=== PATIENT | male | born 1985 | race Two or more races ===

== ENCOUNTER 2020-01-10 19:40 | Inpatient (IN) | payer OTHER ==
[~2020-01-10] VITALS: Ht 170.2 cm; Wt 72.6 kg
[2020-01-10] MEDS ORDERED: IV NORMAL SALINE 500 ML IV ONE (19:44)
--- NOTE | 2020-01-10 19:45 | NUR ---
Dr. Kamara at bedside for MSE.
[2020-01-10] MEDS ORDERED: LEVO75TA7 PO (20:07)
[2020-01-10] MEDS ORDERED: OLAN5TAB3 PO (20:07)
[2020-01-10] MEDS ORDERED: DOCU-141 PO (20:07)
[2020-01-10] MEDS ORDERED: ZONI100C31 PO (20:07)
[2020-01-10] MEDS ORDERED: QUET150T2 PO (20:07)
[2020-01-10] MEDS ORDERED: LEVE500T19 PO (20:07)
[2020-01-10] MEDS ORDERED: TRAZ-182 PO (20:07)
[2020-01-10] MEDS ORDERED: SENN8.6T19 PO (20:07)
[2020-01-10 20:39] LABS: ABG BASE EXCESS -4.2 mmol/L; ABG HCO3 19.1 mmol/L; ABG PCO2 30.3 mmHg (35.0-45.0); ABG PH 7.417 (7.350-7.450); ABG PO2 91.6 mmHg (75.0-100.0); ABG SITE LEFT BRACHIAL; ABG TOTAL HEMOGLOBIN 14.2 G/dL (13.5-18.0); COHb 1.2 % (0.5-1.5); MetHb 0.2 % (0.0-1.5); VENT MODE Nasal Cannula
--- NOTE | 2020-01-10 20:55 | NUR ---
Xray at bedside.
[2020-01-10] MEDS ORDERED: AZITHROMYCIN IV 500 MG in IV DEXTROSE 5% 250 ML IV ONE (21:15)
[2020-01-10] MEDS ORDERED: CEFTRIAXONE 1 G in IV DEXTROSE 5% 50 ML IV ONE (21:15)
--- NOTE | 2020-01-10 21:20 | NUR ---
Unable to draw blood from IV, patient is a hard stick, made aware for central line insertion.
[2020-01-10] MEDS ORDERED: CEFTRIAXONE 1 G VIAL ONE (21:54)
[2020-01-10] MEDS ORDERED: AZITHROMYCIN 500MG/ D5W 250ML IVPB **ER PYXIS ONLY IV ONE (21:55)
--- NOTE | 2020-01-11 00:45 | NUR ---
Triple lumen central line catheter placed by Dr. Kamara. Patient tolerated procedure well.
[2020-01-11 01:22] LABS: BASOPHILS % (AUTO) 0.4 % (0.0-2.0); EOSINOPHILS # (AUTO) 0.1 K/uL (0.0-0.7); EOSINOPHILS % (AUTO) 1.1 % (0.0-7.0); HEMATOCRIT 40.9 % (36.7-47.1); HEMOGLOBIN 14.2 g/dL (12.5-16.3); LYMPHOCYTES # (AUTO) 1.4 K/uL (20.0-40.0); LYMPHOCYTES % (AUTO) 26.6 % (20.5-51.5); MEAN CORPUSCULAR HEMOGLOBIN 29.6 uug (23.8-33.4); MEAN CORPUSCULAR HGB CONC 35 g/dL (32.5-36.3); MEAN CORPUSCULAR VOLUME 85.4 fL (73.0-96.2); MONOCYTES # (AUTO) 0.5 K/uL (2.0-10.0); MONOCYTES % (AUTO) 10.6 % (0.0-11.0); NEUTROPHILS # (AUTO) 3.1 K/uL (1.8-8.9); NEUTROPHILS % (AUTO) 61.3 % (38.5-71.5); PLATELET COUNT (AUTO) 280 K/uL (152-348); RED BLOOD CELL COUNT(AUTO) 4.79 MIL/uL (4.06-5.63); WHITE BLOOD COUNT (AUTO) 5.1 K/uL (3.6-10.2)
[2020-01-11 01:29] LABS: CREATININE 0.9 mg/dL (0.6-1.3); POTASSIUM 3.1 mmol/L (3.5-5.1)
--- NOTE | 2020-01-11 01:44 | NUR ---
Dr. Kamara on panel call with Bebo Goldsmith DNP.
--- NOTE | 2020-01-11 01:45 | NUR ---
Patient accepted for admission to [facility] by Bebo Goldsmith DNP. Diagnosis: Pneumonia, Covid 19+.
[2020-01-11 01:46] LABS: BILIRUBIN,TOTAL 0.4 mg/dL (0.2-1.0); TOTAL PROTEIN, SERUM 7.8 g/dL (6.4-8.2)
[2020-01-11] MEDS ORDERED: ONDANSETRON 4 MG/2 ML VIAL IV PRN (02:00)
[2020-01-11] MEDS ORDERED: Z GUARD REMEDY PASTE 57 GM TUBE TOP PRN (02:00)
[2020-01-11] MEDS ORDERED: ACETAMINOPHEN 650 MG SUPP.RECT RC PRN (02:00)
--- NOTE | 2020-01-11 02:38 | NUR ---
Report given to Brandon LÓPEZ Tele.
[2020-01-11] MEDS ORDERED: POTASSIUM CHLORIDE 100 ML ONE (02:55)
[2020-01-11] MEDS: POTASSIUM CHLORIDE 50 ML IV SCH ×2 (03:25→04:46)
[2020-01-11] MEDS ORDERED: PIPERACILLIN SODIUM/TAZO 3.375 GM VIAL ONE (03:48)
[2020-01-11 04:31] VITALS: BP 103/70
[2020-01-11] MEDS ORDERED: PIPERACILLIN SODIUM/TAZOBACTAM 3.375 G in IV DEXTROSE 5% 50 ML IV SCH (06:00)
[2020-01-11] MEDS ORDERED: PIPERACILLIN/TAZOBACTAM/D5W 3.375 G in PREMIXED 1 EACH IV SCH (06:00)
[2020-01-11] MEDS: LEVOTHYROXINE SODIUM 75 MCG TABLET PO SCH (06:18)
[2020-01-11] MEDS ORDERED: LEVE500T20 PO (06:51)
--- NOTE | 2020-01-11 07:00 | NUR ---
Admitted to room 516; seizure precaution observed; passed bedside swallow test; admission procedures done;; initially placed condom cath for urine collection but failed; antibiotics started; needs attended; continue to monitor; pt took meds crushed with applesauce and given with aspiration precaution; WCRN and dietary consult ordered; low air loss mattress orders; will endorse Addendum: 01/12/20 at 0431 by GREGORIA PAUL RN room 216
--- NOTE | 2020-01-11 08:00 | NUR ---
received pt. resting in bed alert oriented to self. seizure precautions in place. IV in L wrist and R femoral central line triple lumen in place. all lumens flush well. pt. on 2 L saturating well. pt. on pvc monitor. pt. able to swallow pills crushed with apple sauce. safety measures in place. call light within reach.
[2020-01-11 08:05] LABS: BASOPHILS % (AUTO) 0.2 % (0.0-2.0); EOSINOPHILS % (AUTO) 0.8 % (0.0-7.0); HEMATOCRIT 37.8 % (36.7-47.1); HEMOGLOBIN 13.1 g/dL (12.5-16.3); LYMPHOCYTES # (AUTO) 1.2 K/uL (20.0-40.0); LYMPHOCYTES % (AUTO) 27.6 % (20.5-51.5); MEAN CORPUSCULAR HEMOGLOBIN 29.6 uug (23.8-33.4); MEAN CORPUSCULAR HGB CONC 35 g/dL (32.5-36.3); MEAN CORPUSCULAR VOLUME 85.5 fL (73.0-96.2); MONOCYTES # (AUTO) 0.5 K/uL (2.0-10.0); MONOCYTES % (AUTO) 11.9 % (0.0-11.0); NEUTROPHILS # (AUTO) 2.7 K/uL (1.8-8.9); NEUTROPHILS % (AUTO) 59.5 % (38.5-71.5); PLATELET COUNT (AUTO) 261 K/uL (152-348); RED BLOOD CELL COUNT(AUTO) 4.42 MIL/uL (4.06-5.63); WHITE BLOOD COUNT (AUTO) 4.5 K/uL (3.6-10.2)
[2020-01-11 08:58] LABS: ALANINE AMINOTRANSFERASE 58 U/L (16-63); ALKALINE PHOSPHATASE 102 U/L (50-136); ASPARTATE AMINOTRANSFERASE 45 U/L (15-37); BILIRUBIN,TOTAL 0.3 mg/dL (0.2-1.0); CARBON DIOXIDE 17 mmol/L (21-32); CHLORIDE 106 mmol/L (98-107); CHOLESTEROL 177 mg/dL (<200); CREATININE 0.6 mg/dL (0.6-1.3); GLUCOSE 102 mg/dL (74-106); HDL CHOLESTEROL 29 mg/dL (40-60); MAGNESIUM 2.1 mg/dL (1.8-2.4); PHOSPHOROUS 3.6 mg/dL (2.5-4.9); POTASSIUM 3.6 mmol/L (3.5-5.1); TOTAL PROTEIN, SERUM 7.3 g/dL (6.4-8.2); TRIGLYCERIDES 178 MG/DL (30-150); UREA NITROGEN, BLOOD 8 mg/dL (7-18)
[2020-01-11] MEDS ORDERED: LEVETIRACETAM 500 MG PO SCH (09:00)
[2020-01-11] MEDS: ENOXAPARIN SODIUM 40 MG/0.4 ML DISP.SYRIN SQ SCH (09:00)
[2020-01-11] MEDS: PANTOPRAZOLE SODIUM 40 MG VIAL IV SCH (11:24)
[2020-01-11] MEDS: HYDROXYCHLOROQUINE SULFATE 200 MG TABLET PO SCH ×2 (11:24→20:50)
[2020-01-11] MEDS: levETIRAcetam 500 MG TABLET PO SCH ×2 (11:24→20:59)
[2020-01-11 11:30] VITALS: BP 105/71
[2020-01-11] MEDS: PIPERACILLIN/TAZOBACTAM/D5W 3.375 G in IV DEXTROSE 5% 50 ML IV SCH ×2 (13:04→21:15)
[2020-01-11 16:00] VITALS: BP 105/73
--- NOTE | 2020-01-11 18:48 | NUR ---
spoke to primer charger and Dr. Castro for pt.'s diet as there is no order in. Waiting to hear from [facility] what diet is there. pt. picked his L nostril and had a nose bleed. Cleaned pt.'s nose. safety measures in place. will endorse to pm nurse
[2020-01-11 20:00] VITALS: BP 97/65
[2020-01-11] MEDS: SENNOSIDES 1 TABLET PO SCH (20:51)
[2020-01-11] MEDS: ZONISAMIDE 100 MG CAPSULE PO SCH (20:59)
[2020-01-11] MEDS: ATORVASTATIN 10 MG TABLET PO SCH (21:00)
[2020-01-11] MEDS ORDERED: DOCUSATE SODIUM 100 MG CAPSULE PO SCH (21:00)
--- NOTE | 2020-01-11 21:00 | NUR ---
Pt's dressing to groin CL changed aseptically; per Jeannine Assisted, pt is on pureed diet and Dr Holder ordered this. diet.
[2020-01-11] MEDS: DOCUSATE SODIUM 100 MG/10 ML LIQUID UDC PO SCH (21:15)
[2020-01-12] VITALS: BP 100/67
[2020-01-12 05:39] LABS: *BILIRUBIN,URIN NEGATIVE (NEGATIVE); *BLOOD, URINE NEGATIVE (NEGATIVE); *CLARITY,URINE CLEAR (CLEAR); *COLOR,URINE YELLOW (YELLOW); *KETONES,URINE NEGATIVE (NEGATIVE); LEUKOCYTE ESTERASE ,URINE NEGATIVE (NEGATIVE); NITRITE, URINE NEGATIVE (NEGATIVE); PH,URINE 7.5 (5.0-8.0); UGLUCOSE NEGATIVE (NEGATIVE)
[2020-01-12] MEDS: PIPERACILLIN/TAZOBACTAM/D5W 3.375 G in IV DEXTROSE 5% 50 ML IV SCH ×3 (05:43→21:20)
--- NOTE | 2020-01-12 06:00 | NUR ---
Pt rested well in between care; seizure and aspiration precaution maintained; urine collected by clean catch and sent to lab; ongoing antibiotics; incontinence care done; continue to monitor; continue plan of care.
[2020-01-12 06:29] LABS: BACTERIA,URINE NONE SEEN /HPF (NONE SEEN); MUCUS,URINE FEW /LPF (0-FEW); RBC,URINE 0-3 /HPF (0-3); SQUAMOUS EPITHELIAL CELL,UR FEW /HPF (NONE SEEN); WBC,URINE 0-3 /HPF (0-3)
[2020-01-12] MEDS: LEVOTHYROXINE SODIUM 75 MCG TABLET PO SCH (06:36)
[2020-01-12 07:21] LABS: BASOPHILS % (AUTO) 0.4 % (0.0-2.0); EOSINOPHILS # (AUTO) 0.1 K/uL (0.0-0.7); EOSINOPHILS % (AUTO) 1.6 % (0.0-7.0); HEMOGLOBIN 13.7 g/dL (12.5-16.3); LYMPHOCYTES # (AUTO) 1.1 K/uL (20.0-40.0); LYMPHOCYTES % (AUTO) 26.3 % (20.5-51.5); MEAN CORPUSCULAR HEMOGLOBIN 29.2 uug (23.8-33.4); MEAN CORPUSCULAR HGB CONC 34 g/dL (32.5-36.3); MEAN CORPUSCULAR VOLUME 85.3 fL (73.0-96.2); MONOCYTES # (AUTO) 0.6 K/uL (2.0-10.0); NEUTROPHILS # (AUTO) 2.3 K/uL (1.8-8.9); NEUTROPHILS % (AUTO) 56.7 % (38.5-71.5); RED BLOOD CELL COUNT(AUTO) 4.69 MIL/uL (4.06-5.63); WHITE BLOOD COUNT (AUTO) 4.1 K/uL (3.6-10.2)
[2020-01-12 07:34] LABS: CREATININE 0.9 mg/dL (0.6-1.3); MAGNESIUM 2.2 mg/dL (1.8-2.4); POTASSIUM 3.5 mmol/L (3.5-5.1)
[2020-01-12 07:42] LABS: PLATELET COUNT (AUTO) 341 K/uL (152-348)
--- NOTE | 2020-01-12 08:00 | NUR ---
Received pt in bed awake, watching tv, but non-verbal. Doesn't answer questions nor obey commands. Removed O2 cannula, attempted to replace but pt refused and tried to punch the nurse. Stayed on RA saturating 92%. Dr. Cleary made aware. Triple lumen Central line on right groin running TKO, flushed and all lumens are patent. Seizure, fall and aspiration precautions in place. Pt repositioned. Bed locked in lowest position with siderails 3x up. Call light within reach. Will monitor.
[2020-01-12] MEDS: levETIRAcetam 500 MG TABLET PO SCH ×2 (08:51→20:34)
[2020-01-12] MEDS: HYDROXYCHLOROQUINE SULFATE 200 MG TABLET PO SCH ×2 (08:51→20:34)
[2020-01-12] MEDS: PANTOPRAZOLE SODIUM 40 MG VIAL IV SCH (08:51)
[2020-01-12] MEDS: ENOXAPARIN SODIUM 40 MG/0.4 ML DISP.SYRIN SQ SCH (08:52)
[2020-01-12 09:30] VITALS: BP 99/57
[2020-01-12 10:09] LABS: EOSINOPHILS % (MANUAL) 2 % (0-8); LYMPHOCYTES % (MANUAL) 30 % (20-40); MONOCYTES % (MANUAL) 11 % (2-10); MYELOCYTES % 2 % (0-0); NEUTROPHILS % (MANUAL) 55 % (42-75)
--- NOTE | 2020-01-12 12:42 | NUR ---
WOUND CARE CONSULT: REVIEWED CHART, NURSING DOCUMENTATION AND PHOTOS. SPOKE WITH NURSING STAFF. DISCUSSED SKIN PROTECTION. WILL SEE PRN. CURRENT DELLA SCORE IS 13. MD IN AGREEMENT WITH PLAN OF CARE.
[2020-01-12 18:39] VITALS: BP 102/65
[2020-01-12] MEDS: DOCUSATE SODIUM 100 MG/10 ML LIQUID UDC PO SCH (20:33)
[2020-01-12] MEDS: ZONISAMIDE 100 MG CAPSULE PO SCH (20:34)
[2020-01-12] MEDS: ATORVASTATIN 10 MG TABLET PO SCH (20:34)
[2020-01-12] MEDS: SENNOSIDES 1 TABLET PO SCH (20:34)
--- NOTE | 2020-01-12 21:49 | NUR ---
awake and alert, patient nonverbal. Bedrest maintained.Right femoral triple lumen CVP intact, flushed and patent. IV ABT given at scheduled times. Tolerated well. No ill effects noted. VSS. 93%RA. Compliant with meds, took meds with apple sauce. On teletypesetter monitor, patient on SR with bundle branch block. Seizures precautions maintained. Incontinent of bowel and bladder. No BM noted this shift. Will monitor patient. Respiratory isolation maintained. Fall precautions maintained. Siderails up for safety.
[2020-01-13] MEDS: PIPERACILLIN/TAZOBACTAM/D5W 3.375 G in IV DEXTROSE 5% 50 ML IV SCH ×3 (05:40→22:50)
[2020-01-13] MEDS: LEVOTHYROXINE SODIUM 75 MCG TABLET PO SCH (06:12)
--- NOTE | 2020-01-13 06:31 | NUR ---
End of shift notes: Quiet night. No distress noted. VSS. Attended to needs. Incontinent of urine x2. Kept clean and dry. . On telemetry, patient SR HR 75. Will monitor patient.
[2020-01-13 08:12] VITALS: BP 101/61
[2020-01-13] MEDS: levETIRAcetam 500 MG TABLET PO SCH ×2 (09:16→20:36)
[2020-01-13] MEDS: HYDROXYCHLOROQUINE SULFATE 200 MG TABLET PO SCH ×2 (09:16→20:36)
[2020-01-13] MEDS: PANTOPRAZOLE SODIUM 40 MG TABLET.DR PO SCH (09:18)
[2020-01-13] MEDS: ENOXAPARIN SODIUM 40 MG/0.4 ML DISP.SYRIN SQ SCH (09:20)
[2020-01-13 09:32] LABS: BASOPHILS % (AUTO) 0.4 % (0.0-2.0); EOSINOPHILS # (AUTO) 0.1 K/uL (0.0-0.7); EOSINOPHILS % (AUTO) 2.5 % (0.0-7.0); HEMOGLOBIN 14.9 g/dL (12.5-16.3); LYMPHOCYTES # (AUTO) 1.5 K/uL (20.0-40.0); LYMPHOCYTES % (AUTO) 36.6 % (20.5-51.5); MEAN CORPUSCULAR HEMOGLOBIN 29.2 uug (23.8-33.4); MEAN CORPUSCULAR HGB CONC 34 g/dL (32.5-36.3); MEAN CORPUSCULAR VOLUME 86.2 fL (73.0-96.2); MONOCYTES # (AUTO) 0.4 K/uL (2.0-10.0); MONOCYTES % (AUTO) 10.1 % (0.0-11.0); NEUTROPHILS # (AUTO) 2.1 K/uL (1.8-8.9); NEUTROPHILS % (AUTO) 50.4 % (38.5-71.5); PLATELET COUNT (AUTO) 423 K/uL (152-348); WHITE BLOOD COUNT (AUTO) 4.2 K/uL (3.6-10.2)
[2020-01-13 10:13] LABS: MAGNESIUM 2.4 mg/dL (1.8-2.4); PHOSPHOROUS 3.1 mg/dL (2.5-4.9); POTASSIUM 3.4 mmol/L (3.5-5.1)
[2020-01-13 20:00] VITALS: BP 125/75
[2020-01-13] MEDS: SENNOSIDES 1 TABLET PO SCH (20:36)
[2020-01-13] MEDS: ATORVASTATIN 10 MG TABLET PO SCH (20:36)
[2020-01-13] MEDS: DOCUSATE SODIUM 100 MG/10 ML LIQUID UDC PO SCH (20:36)
[2020-01-13] MEDS: ZONISAMIDE 100 MG CAPSULE PO SCH (20:37)
[2020-01-13] MEDS ORDERED: DOCUSATE SODIUM 100 MG CAPSULE PO SCH (21:00)
[2020-01-14] VITALS: BP 107/54
[2020-01-14 04:00] VITALS: BP 105/68
[2020-01-14] MEDS: PIPERACILLIN/TAZOBACTAM/D5W 3.375 G in IV DEXTROSE 5% 50 ML IV SCH ×3 (06:17→21:10)
[2020-01-14] MEDS: LEVOTHYROXINE SODIUM 75 MCG TABLET PO SCH (06:18)
--- NOTE | 2020-01-14 06:47 | NUR ---
Patient slept intermittently. No SOB noted. Central line on RFV triple lumen intact and patent. IV ATB tolerated well. On seizure prec. Turned and repositioned. Will endorse accordingly
[2020-01-14 07:23] LABS: CREATININE 1.1 mg/dL (0.6-1.3); MAGNESIUM 2.3 mg/dL (1.8-2.4); PHOSPHOROUS 4.2 mg/dL (2.5-4.9); POTASSIUM 3.7 mmol/L (3.5-5.1)
--- NOTE | 2020-01-14 07:40 | NUR ---
Received patient in bed, awake. No signs of distress noted. On Room Air saturating 93%. No SOB. No complain of Pain or discomfort. On contact and droplet isolation for Positive covid 19. Proper PPE strictly Observed. Kept clean and comfortable. Will continue to monitor.
[2020-01-14 08:00] VITALS: BP 107/72
[2020-01-14 08:04] LABS: BASOPHILS % (AUTO) 0.3 % (0.0-2.0); EOSINOPHILS # (AUTO) 0.2 K/uL (0.0-0.7); EOSINOPHILS % (AUTO) 2.8 % (0.0-7.0); HEMATOCRIT 43.6 % (36.7-47.1); HEMOGLOBIN 15.1 g/dL (12.5-16.3); LYMPHOCYTES # (AUTO) 1.8 K/uL (20.0-40.0); MEAN CORPUSCULAR HEMOGLOBIN 29.9 uug (23.8-33.4); MEAN CORPUSCULAR HGB CONC 35 g/dL (32.5-36.3); MEAN CORPUSCULAR VOLUME 86.3 fL (73.0-96.2); MONOCYTES # (AUTO) 0.7 K/uL (2.0-10.0); MONOCYTES % (AUTO) 12.7 % (0.0-11.0); NEUTROPHILS # (AUTO) 3.1 K/uL (1.8-8.9); NEUTROPHILS % (AUTO) 53.2 % (38.5-71.5); PLATELET COUNT (AUTO) 502 K/uL (152-348); RED BLOOD CELL COUNT(AUTO) 5.05 MIL/uL (4.06-5.63)
[2020-01-14 08:14] LABS: WHITE BLOOD COUNT (AUTO) 5.8 K/uL (3.6-10.2)
[2020-01-14] MEDS: PANTOPRAZOLE SODIUM 40 MG TABLET.DR PO SCH (09:02)
[2020-01-14] MEDS: levETIRAcetam 500 MG TABLET PO SCH ×2 (09:02→20:45)
[2020-01-14] MEDS: HYDROXYCHLOROQUINE SULFATE 200 MG TABLET PO SCH ×2 (09:10→20:44)
[2020-01-14] MEDS: ENOXAPARIN SODIUM 40 MG/0.4 ML DISP.SYRIN SQ SCH (09:38)
[2020-01-14 11:30] VITALS: BP 104/68
[2020-01-14 15:30] VITALS: BP 99/66
--- NOTE | 2020-01-14 18:29 | NUR ---
Patient in bed, awake. No signs of distress noted. On Room Air saturating 94%. No SOB noted. Afebrile. No signs of Pain or discomfort. All needs attended and met. Kept clean and comfortable. Will endorse to Oncoming Nurse.
[2020-01-14 20:00] VITALS: BP 109/69
--- NOTE | 2020-01-14 20:00 | NUR ---
Patient received into care, sitting up in bed, watching television. Patient is alert/oriented x1 and is nonverbal. Patient has no s/s of acute distress or discomfort noted/observed by this nurse. All safety, seizure, fall, and isolation precaution measures are in place. Call light and personal items are within reach at all times. Will continue to monitor and assess.
[2020-01-14] MEDS: DOCUSATE SODIUM 100 MG/10 ML LIQUID UDC PO SCH (20:44)
[2020-01-14] MEDS: ZONISAMIDE 100 MG CAPSULE PO SCH (20:44)
[2020-01-14] MEDS: ATORVASTATIN 10 MG TABLET PO SCH (20:44)
[2020-01-14] MEDS: SENNOSIDES 1 TABLET PO SCH (20:45)
[2020-01-15] VITALS (7 sets, daily range): BP systolic 101–112; BP diastolic 60–74
[2020-01-15] MEDS: PIPERACILLIN/TAZOBACTAM/D5W 3.375 G in IV DEXTROSE 5% 50 ML IV SCH ×3 (05:04→22:00)
[2020-01-15] MEDS: LEVOTHYROXINE SODIUM 75 MCG TABLET PO SCH (06:00)
--- NOTE | 2020-01-15 06:00 | NUR ---
Patient slept intermittently throughout night with no s/s of acute distress or discomfort noted/observed by this nurse. All prescribed medications provided as ordered and tolerated well with no adverse side effects noted/observed by this nurse. All patient needs met promptly and patient is warm, dry, and comfortable. All safety,fall, isolation, and seizure precautions remain in effect. Call light and personal items remain within reach at all times.
--- NOTE | 2020-01-15 08:00 | NUR ---
Received patient in bed, awake. No signs of distress noted. No SOB. Saturating 94%. No signs of Pain or discomfort noted. Remains on contact and droplet Precaution for covid 19. Proper PPE strictly Observed. Kept clean and comfortable. Will continue to monitor.
[2020-01-15] MEDS: HYDROXYCHLOROQUINE SULFATE 200 MG TABLET PO SCH ×2 (08:08→21:57)
[2020-01-15] MEDS: levETIRAcetam 500 MG TABLET PO SCH ×2 (08:08→21:58)
[2020-01-15] MEDS: PANTOPRAZOLE SODIUM 40 MG TABLET.DR PO SCH (08:08)
[2020-01-15 08:32] LABS: MAGNESIUM 2.3 mg/dL (1.8-2.4); PHOSPHOROUS 3.6 mg/dL (2.5-4.9); POTASSIUM 3.5 mmol/L (3.5-5.1)
[2020-01-15 08:43] LABS: BASOPHILS % (AUTO) 0.4 % (0.0-2.0); EOSINOPHILS # (AUTO) 0.2 K/uL (0.0-0.7); HEMATOCRIT 44.3 % (36.7-47.1); HEMOGLOBIN 14.9 g/dL (12.5-16.3); LYMPHOCYTES # (AUTO) 1.6 K/uL (20.0-40.0); LYMPHOCYTES % (AUTO) 29.7 % (20.5-51.5); MEAN CORPUSCULAR HEMOGLOBIN 29.2 uug (23.8-33.4); MEAN CORPUSCULAR HGB CONC 34 g/dL (32.5-36.3); MEAN CORPUSCULAR VOLUME 86.8 fL (73.0-96.2); MONOCYTES # (AUTO) 0.7 K/uL (2.0-10.0); MONOCYTES % (AUTO) 12.1 % (0.0-11.0); NEUTROPHILS % (AUTO) 54.8 % (38.5-71.5); WHITE BLOOD COUNT (AUTO) 5.4 K/uL (3.6-10.2)
[2020-01-15] MEDS: ENOXAPARIN SODIUM 40 MG/0.4 ML DISP.SYRIN SQ SCH (10:01)
[2020-01-15 13:03] LABS: PLATELET COUNT (AUTO) 547 K/uL (152-348)
--- NOTE | 2020-01-15 18:22 | NUR ---
Patient in bed, awake. Bengali speaking. No signs of distress noted. No SOB. No episode of cough. No SOB. saturating 94% on Room Air. No complain of Pain or discomfort. kept clean and comfortable. Will endorse to Oncoming Nurse.
--- NOTE | 2020-01-15 20:00 | NUR ---
Patient received into care, sitting up in bed, watching television. Patient is alert/oriented x1 and nonverbal. Patient has no s/s of acute distress or discomfort noted/observed by this nurse.All safety, fall, seizure, and isolation precautions are in place. Call light and personal items are within reach at all times. Will continue to monitor and assess.
[2020-01-15] MEDS: DOCUSATE SODIUM 100 MG/10 ML LIQUID UDC PO SCH (21:57)
[2020-01-15] MEDS: ATORVASTATIN 10 MG TABLET PO SCH (21:58)
[2020-01-15] MEDS: SENNOSIDES 1 TABLET PO SCH (21:58)
[2020-01-15] MEDS: ZONISAMIDE 100 MG CAPSULE PO SCH (22:00)
[2020-01-16] VITALS: BP 106/60
[2020-01-16 04:58] VITALS: BP 106/68
[2020-01-16] MEDS: PIPERACILLIN/TAZOBACTAM/D5W 3.375 G in IV DEXTROSE 5% 50 ML IV SCH ×3 (05:32→22:02)
[2020-01-16] MEDS: LEVOTHYROXINE SODIUM 75 MCG TABLET PO SCH (06:02)
--- NOTE | 2020-01-16 08:00 | NUR ---
Patient slept intermittently throughout night with no s/s of acute distress or discomfort noted or observed by this nurse. All prescribed medications given as ordered and tolerated well with no s/s of adverse side effects noted or observed by this nurse. All safety, fall, seizure, and isolation precautions remain in effect. Call light and personal items remain in effect.
[2020-01-16 09:00] VITALS: BP 111/56
[2020-01-16] MEDS: levETIRAcetam 500 MG TABLET PO SCH ×2 (09:05→21:08)
[2020-01-16] MEDS: PANTOPRAZOLE SODIUM 40 MG TABLET.DR PO SCH (09:05)
[2020-01-16] MEDS: ENOXAPARIN SODIUM 40 MG/0.4 ML DISP.SYRIN SQ SCH (09:11)
--- NOTE | 2020-01-16 09:58 | NUR ---
Patient noted laying in bed, nonverbal, took all Am medications, no facial cues of pain, no signs of distress noted, ate 100% of breakfast and tolerated it well, medium sized BM noted, call light in reach, bed locked and in lowest position, side rails padded as seizure precaution
[2020-01-16 17:00] VITALS: BP 106/61
--- NOTE | 2020-01-16 20:00 | NUR ---
Patient received into care laying in bed with television on, resting comfortably. Patient is alert/oriented x1 and is nonverbal. Patient has no s/s of acute distress or discomfort noted/observed by this nurse. All safety, fall, and isolation precautions are in place. Call light and personal items are within reach at all times. Will continue to monitor and assess.
[2020-01-16 20:05] VITALS: BP 115/54
[2020-01-16] MEDS: SENNOSIDES 1 TABLET PO SCH (21:00)
[2020-01-16] MEDS: DOCUSATE SODIUM 100 MG/10 ML LIQUID UDC PO SCH (21:00)
[2020-01-16] MEDS: ZONISAMIDE 100 MG CAPSULE PO SCH (21:08)
[2020-01-16] MEDS: ATORVASTATIN 10 MG TABLET PO SCH (21:08)
[2020-01-17 00:11] VITALS: BP 110/60
[2020-01-17 04:00] VITALS: BP 120/64
[2020-01-17] MEDS: PIPERACILLIN/TAZOBACTAM/D5W 3.375 G in IV DEXTROSE 5% 50 ML IV SCH ×2 (05:24→15:06)
--- NOTE | 2020-01-17 06:00 | NUR ---
Patient slept well throughout night with no s/s of acute distress or discomfort noted/observed by this nurse. All prescribed medications provided as ordered and tolerated well, with no adverse side effects noted/observed by this nurse. All safety, fall, seizure,and isolation precautions remain in place. Call light and personal items remain within reach at all times.
[2020-01-17] MEDS: LEVOTHYROXINE SODIUM 75 MCG TABLET PO SCH (06:43)
[2020-01-17] MEDS: levETIRAcetam 500 MG TABLET PO SCH ×2 (08:54→21:03)
[2020-01-17] MEDS: PANTOPRAZOLE SODIUM 40 MG TABLET.DR PO SCH (08:54)
[2020-01-17] MEDS: ENOXAPARIN SODIUM 40 MG/0.4 ML DISP.SYRIN SQ SCH (09:07)
[2020-01-17 17:23] VITALS: BP 125/68
--- NOTE | 2020-01-17 20:00 | NUR ---
Received patient awake and alert. Patient shows no signs or symptoms of distress at this time. Vital signs stable. NSR on tele monitor. Patient O2 on RA was 92%. Pt given O2 at 2L and is now 96%. Call light within reach. Side rails X2 are up. Bed set to lowest position. Will continue to monitor patient.
[2020-01-17 20:46] VITALS: BP 113/64
[2020-01-17] MEDS: SENNOSIDES 1 TABLET PO SCH (21:03)
[2020-01-17] MEDS: DOCUSATE SODIUM 100 MG/10 ML LIQUID UDC PO SCH (21:03)
[2020-01-17] MEDS: ATORVASTATIN 10 MG TABLET PO SCH (21:03)
[2020-01-17] MEDS: ZONISAMIDE 100 MG CAPSULE PO SCH (21:04)
--- NOTE | 2020-01-18 00:17 | NUR ---
Pt endorsed to MARIBEL Valenzuela for continuity of care.
--- NOTE | 2020-01-18 00:17 | NUR ---
Received report from MARIBEL Ward. Patient is sleeping easy to arouse. Patient has no s/s of acute distress or pain. Patient's vitals are stable. Safety measures in place. Will continue with the plan of care.
[2020-01-18 00:31] VITALS: BP 108/60
[2020-01-18 05:24] VITALS: BP 99/62
[2020-01-18] MEDS: LEVOTHYROXINE SODIUM 75 MCG TABLET PO SCH (06:23)
--- NOTE | 2020-01-18 07:00 | NUR ---
Patient slept throughout the night. Patient has no s/s of acute distress or pain at this time. Patient's O2 on 2L NC is 97% Patient's vitals are stable. Afebrile at this time. All prescribed medications provided, patient was compliant. Comfort care and safety provided. All needs attended. Fall, seizure and isolation precautions maintained. Safety measures in place. Bed low and locked in position. Call lights within reach. Will endorse to the oncoming nurse accordingly.
[2020-01-18] MEDS: levETIRAcetam 500 MG TABLET PO SCH ×2 (09:57→22:00)
[2020-01-18] MEDS: PANTOPRAZOLE SODIUM 40 MG TABLET.DR PO SCH (09:57)
[2020-01-18] MEDS: ENOXAPARIN SODIUM 40 MG/0.4 ML DISP.SYRIN SQ SCH (09:59)
[2020-01-18 12:00] VITALS: BP 111/64
[2020-01-18 15:42] VITALS: BP 111/55
[2020-01-18 20:08] VITALS: BP 105/64
[2020-01-18] MEDS: ZONISAMIDE 100 MG CAPSULE PO SCH (21:59)
[2020-01-18] MEDS: SENNOSIDES 1 TABLET PO SCH (21:59)
[2020-01-18] MEDS: ATORVASTATIN 10 MG TABLET PO SCH (22:00)
[2020-01-18] MEDS: DOCUSATE SODIUM 100 MG/10 ML LIQUID UDC PO SCH (22:00)
--- NOTE | 2020-01-19 04:12 | NUR ---
Received patient resting/ watching TV. patient is AxOx 1-2, nonverbal but makes needs known. On RA no signs and symptoms of distress, no SOB noted. Skin intact, vitals stable. All medications crushed and administered with apple sauce. Patient had large BM, PM care completed, comfort care and safety provided. All needs attended. Fall, seizure and isolation precautions maintained. Safety measures in place. Bed low and locked in position. Call lights within reach.
[2020-01-19 05:07] VITALS: BP 112/64
[2020-01-19] MEDS: LEVOTHYROXINE SODIUM 75 MCG TABLET PO SCH (06:20)
[2020-01-19] MEDS: levETIRAcetam 500 MG TABLET PO SCH ×2 (09:18→21:05)
[2020-01-19] MEDS: PANTOPRAZOLE SODIUM 40 MG TABLET.DR PO SCH (09:18)
[2020-01-19] MEDS: ENOXAPARIN SODIUM 40 MG/0.4 ML DISP.SYRIN SQ SCH (09:19)
[2020-01-19 11:30] VITALS: BP 111/58
[2020-01-19 16:00] VITALS: BP 108/62
--- NOTE | 2020-01-19 17:03 | NUR ---
Patient continue monitoring for SOB. patient not in distress. no cough and afebrile noted. Continue aspiration precaution maintained. no complaint/signs of pain/discomfort noted. will continue monitor
--- NOTE | 2020-01-19 20:00 | NUR ---
Received patient awake and alert in bed, A/Ox1, nonverbal but able to make needs known. No complaints of pain or SOB. Vitals WNL. Heplock on the left wrist is intact and patent. Central line on right groin area triple lumen is patent. Safety measures initiated. Bed is low and locked, call light within reach. Will continue to monitor.
[2020-01-19 20:30] VITALS: BP 115/62
[2020-01-19] MEDS: ZONISAMIDE 100 MG CAPSULE PO SCH (21:05)
[2020-01-19] MEDS: SENNOSIDES 1 TABLET PO SCH (21:05)
[2020-01-19] MEDS: ATORVASTATIN 10 MG TABLET PO SCH (21:05)
[2020-01-19] MEDS: DOCUSATE SODIUM 100 MG/10 ML LIQUID UDC PO SCH (21:06)
--- NOTE | 2020-01-19 21:36 | NUR ---
Central line on right groin area dressing changed
--- NOTE | 2020-01-19 21:48 | NUR ---
Seizure precautions in place, cleaned and repositioned.
[2020-01-20] MEDS: LEVOTHYROXINE SODIUM 75 MCG TABLET PO SCH (06:22)
[2020-01-20 06:30] VITALS: BP 112/68
[2020-01-20 06:39] LABS: BILIRUBIN,TOTAL 0.3 mg/dL (0.2-1.0); MAGNESIUM 2.2 mg/dL (1.8-2.4); POTASSIUM 3.6 mmol/L (3.5-5.1); TOTAL PROTEIN, SERUM 7.8 g/dL (6.4-8.2)
[2020-01-20 07:28] LABS: BASOPHILS # (AUTO) 0.1 K/uL (0.0-8.0); BASOPHILS % (AUTO) 0.8 % (0.0-2.0); EOSINOPHILS # (AUTO) 0.2 K/uL (0.0-0.7); EOSINOPHILS % (AUTO) 2.5 % (0.0-7.0); HEMATOCRIT 41.8 % (36.7-47.1); HEMOGLOBIN 14.2 g/dL (12.5-16.3); LYMPHOCYTES # (AUTO) 3.1 K/uL (20.0-40.0); LYMPHOCYTES % (AUTO) 40.8 % (20.5-51.5); MEAN CORPUSCULAR HEMOGLOBIN 29.7 uug (23.8-33.4); MEAN CORPUSCULAR HGB CONC 34 g/dL (32.5-36.3); MEAN CORPUSCULAR VOLUME 87.2 fL (73.0-96.2); MONOCYTES # (AUTO) 0.9 K/uL (2.0-10.0); MONOCYTES % (AUTO) 11.1 % (0.0-11.0); NEUTROPHILS # (AUTO) 3.4 K/uL (1.8-8.9); NEUTROPHILS % (AUTO) 44.8 % (38.5-71.5); PLATELET COUNT (AUTO) 419 K/uL (152-348); RED BLOOD CELL COUNT(AUTO) 4.79 MIL/uL (4.06-5.63)
[2020-01-20 07:31] LABS: WHITE BLOOD COUNT (AUTO) 7.7 K/uL (3.6-10.2)
[2020-01-20] MEDS: levETIRAcetam 500 MG TABLET PO SCH ×2 (08:58→20:51)
[2020-01-20] MEDS: PANTOPRAZOLE SODIUM 40 MG TABLET.DR PO SCH (08:58)
[2020-01-20] MEDS: ENOXAPARIN SODIUM 40 MG/0.4 ML DISP.SYRIN SQ SCH (08:59)
[2020-01-20 11:48] VITALS: BP 113/55
[2020-01-20 16:00] VITALS: BP 117/54
--- NOTE | 2020-01-20 18:24 | NUR ---
EOS note: No significant acute changes during this shift. Pt. remain A/Ox1, non-verbal but responsive to verbal and tactile stimuli. All due medications administered as ordered and tolerated well. In no distress, denies SOB or CP. Skin/wound care rendered. Safety measures in place. Call light and all frequently used items within pt. reach. Will endorse to oncoming shift accordingly.
--- NOTE | 2020-01-20 19:20 | NUR ---
Receive patient lying in bed. AAOx1. In no acute distress. Denies any pain or SOB. Left wrist IV site intact and patent. Central line on right femoral area intact. Afebrile. Droplet and contact precaution observed. Safety measure initiated and call solomon within reached.
[2020-01-20 20:18] VITALS: BP 103/62
[2020-01-20] MEDS: DOCUSATE SODIUM 100 MG/10 ML LIQUID UDC PO SCH (20:51)
[2020-01-20] MEDS: ZONISAMIDE 100 MG CAPSULE PO SCH (20:51)
[2020-01-20] MEDS: ATORVASTATIN 10 MG TABLET PO SCH (20:51)
[2020-01-20] MEDS: SENNOSIDES 1 TABLET PO SCH (20:51)
[2020-01-21 04:18] VITALS: BP 95/60
--- NOTE | 2020-01-21 05:58 | NUR ---
AAOx1. In no acute distress. No signs or symptoms any pain or SOB. Left wrist IV site intact and patent. Central line on right femoral area intact. Afebrile. Droplet and contact precaution observed. Safety measure maintained and call solomon within reached.
[2020-01-21] MEDS: LEVOTHYROXINE SODIUM 75 MCG TABLET PO SCH (06:02)
[2020-01-21 06:49] LABS: BASOPHILS # (AUTO) 0.1 K/uL (0.0-8.0); BASOPHILS % (AUTO) 0.7 % (0.0-2.0); EOSINOPHILS # (AUTO) 0.2 K/uL (0.0-0.7); EOSINOPHILS % (AUTO) 2.5 % (0.0-7.0); HEMATOCRIT 40.5 % (36.7-47.1); HEMOGLOBIN 13.5 g/dL (12.5-16.3); LYMPHOCYTES # (AUTO) 2.9 K/uL (20.0-40.0); LYMPHOCYTES % (AUTO) 33.3 % (20.5-51.5); MEAN CORPUSCULAR HEMOGLOBIN 29.2 uug (23.8-33.4); MEAN CORPUSCULAR HGB CONC 33 g/dL (32.5-36.3); MEAN CORPUSCULAR VOLUME 87.6 fL (73.0-96.2); MONOCYTES # (AUTO) 0.7 K/uL (2.0-10.0); MONOCYTES % (AUTO) 7.9 % (0.0-11.0); NEUTROPHILS # (AUTO) 4.8 K/uL (1.8-8.9); NEUTROPHILS % (AUTO) 55.6 % (38.5-71.5); PLATELET COUNT (AUTO) 389 K/uL (152-348); RED BLOOD CELL COUNT(AUTO) 4.63 MIL/uL (4.06-5.63); WHITE BLOOD COUNT (AUTO) 8.6 K/uL (3.6-10.2)
--- NOTE | 2020-01-21 08:00 | NUR ---
received pt. resting in bed AAOx1. pt. appears in no acute distress. No signs or symptoms any pain or SOB or difficulty breathing. Left wrist IV site intact and patent. Central line on right femoral area intact. Afebrile. Droplet and contact precaution observed. Safety measure maintained and call solomon within reach will continue to monitor pt.
[2020-01-21 08:16] LABS: MAGNESIUM 2.2 mg/dL (1.8-2.4); PHOSPHOROUS 4.3 mg/dL (2.5-4.9); POTASSIUM 3.7 mmol/L (3.5-5.1)
[2020-01-21] MEDS: PANTOPRAZOLE SODIUM 40 MG TABLET.DR PO SCH (09:37)
[2020-01-21] MEDS: levETIRAcetam 500 MG TABLET PO SCH ×2 (09:37→21:43)
[2020-01-21] MEDS: ENOXAPARIN SODIUM 40 MG/0.4 ML DISP.SYRIN SQ SCH (09:39)
[2020-01-21 16:42] VITALS: BP 130/61
--- NOTE | 2020-01-21 18:30 | NUR ---
Covid test sent to lab. Changed femoral central line dressing as it was soiled. pt. tolerated well. safety measures in place. call light within reach. will endorse to pm nurse
[2020-01-21 20:00] VITALS: BP 108/60
--- NOTE | 2020-01-21 20:00 | NUR ---
Patient received into care, laying in bed with television on, resting comfortably. Patient is alert/oriented x1 and has no s/s of acute distress or discomfort noted/observed by this nurse. IV site on left hand is patent and intact. All safety, isolation, seizure, and fall precaution measures are in place. Call light and personal items are within reach at all times. Will continue to monitor and assess.
[2020-01-21] MEDS: ATORVASTATIN 10 MG TABLET PO SCH (21:43)
[2020-01-21] MEDS: DOCUSATE SODIUM 100 MG/10 ML LIQUID UDC PO SCH (21:43)
[2020-01-21] MEDS: SENNOSIDES 1 TABLET PO SCH (21:43)
[2020-01-21] MEDS: ZONISAMIDE 100 MG CAPSULE PO SCH (21:43)
[2020-01-22 04:00] VITALS: BP 101/59
--- NOTE | 2020-01-22 06:00 | NUR ---
Patient slept intermittently throughout night with no s/s of acute distress or discomfort noted or observed by this nurse. All prescribed medications provided as ordered and tolerated well, with no adverse side effects noted or observed by this nurse. All nursing needs were met promptly and patient is warm, dry, and comfortable. Safety, fall, seizure, aspiration, and isolation precautions remain in place. Call light and personal items remain within reach at all times.
[2020-01-22] MEDS: LEVOTHYROXINE SODIUM 75 MCG TABLET PO SCH (06:01)
[2020-01-22] MEDS: PANTOPRAZOLE SODIUM 40 MG TABLET.DR PO SCH (08:01)
[2020-01-22] MEDS: ENOXAPARIN SODIUM 40 MG/0.4 ML DISP.SYRIN SQ SCH (08:01)
[2020-01-22] MEDS: levETIRAcetam 500 MG TABLET PO SCH (08:01)
[2020-01-22] MEDS ORDERED: ATOR10TA PO (10:51)
[2020-01-22 12:00] VITALS: BP 115/55
[2020-01-22 16:00] VITALS: BP 112/67
--- NOTE | 2020-01-22 18:00 | NUR ---
pt. picked up by ambulance. all discharge paperwork given. pt. is stable. iv removed. femoral line removed and okayed by ESPERANZA perez. id band removed. report given to ambulance.
== END 2020-01-22 18:00 | DRG 720 ==
LOC: ER 19:46 → TELE 01-11 02:42 → TELE3 01-17 18:36 → MEDSURG3 01-18 11:45
PROVIDERS: ADMIT Internal Medicine; ATTEND Internal Medicine
PROC: 06HY33Z Insertion of Infusion Device into Lower Vein, Percutaneous Approach (ICD-10-PCS; principal; 2020-01-11)
DX: A41.89 Other specified sepsis (principal); U07.1 COVID-19; E43 Unspecified severe protein-calorie malnutrition; J96.01 Acute respiratory failure with hypoxia; G92 Toxic encephalopathy; F03.90 Unspecified dementia, unspecified severity, without behavioral disturbance, psychotic disturbance, mood disturbance, and anxiety; J12.89 Other viral pneumonia; E03.9 Hypothyroidism, unspecified; G40.909 Epilepsy, unspecified, not intractable, without status epilepticus; E66.9 Obesity, unspecified; E78.5 Hyperlipidemia, unspecified; I45.10 Unspecified right bundle-branch block; R73.03 Prediabetes; Z87.820 Personal history of traumatic brain injury; Z68.25 Body mass index [BMI] 25.0-25.9, adult; R74.0 Nonspecific elevation of levels of transaminase and lactic acid dehydrogenase [LDH]
CPT/HCPCS: 36415; 36600; 70030-TC; 71045; 83605; 83615; 83735; 84100; 84443; 85025; 85730; 86140; 87040; 87086; 87400; 93005; A4663; C1758; C9113; G0378; J0456; J0696; J1650; J2543; J3480; J7030; J7060; J8499; U0003-CS